=== PATIENT | male | born 1965 | race Caucasian/White ===

== ENCOUNTER 2017-11-26 06:08 | Inpatient (IN) | payer OTHER ==
[2017-11-26] MEDS: TRANEXAMIC ACID 1,000 MG in DEXTROSE 5% 100 ML IVPB (06:30)
[2017-11-26] MEDS: CEFAZOLIN 2 GM/50 ML (PMX) 50 ML IVPB (06:30)
[2017-11-26] MEDS ORDERED: BUPIVACAINE 0.5% (SDV) 30 ML, morphine SULFATE (PF) 8 MG, EPINEPHrine 0.3 MG, KETOROLAC... IRR (06:30)
[2017-11-26] MEDS ORDERED: THROMBIN 5000 UNIT VIAL (06:49)
[2017-11-26] MEDS ORDERED: TOBRAMYCIN 1.2 GM POWDER (06:49)
[2017-11-26] MEDS ORDERED: CA CHLORIDE 10% 10 ML SYRINGE (06:50)
[2017-11-26] MEDS: traMADol 50 MG TAB PO (06:55)
[2017-11-26] MEDS: DEXAMETHASONE 1 MG TAB PO (06:55)
[2017-11-26] MEDS: GABAPENTIN 300 MG CAP PO ×2 (06:55→20:03)
[2017-11-26] MEDS ORDERED: ROCURONIUM 50 MG INJ (07:00)
[2017-11-26] MEDS ORDERED: MIDAZOLAM 1 MG/ML 2 ML INJ (07:30)
[2017-11-26] MEDS ORDERED: ROPIVACAINE 0.5 % 30 ML VIAL (07:32)
[2017-11-26] MEDS: POLYMYXIN/BACITRACIN 1L IRRIG (09:02)
[2017-11-26] MEDS: BUPIVACAINE 0.5%/EPI (SDV) 30 ML INJ (09:02)
[2017-11-26] MEDS ORDERED: METOPROLOL 5 MG INJ (10:05)
[2017-11-26] MEDS ORDERED: LIDOCAINE 2% (SDV) 5 ML INJ (10:05)
[2017-11-26] MEDS ORDERED: PROPOFOL 20 ML (10:05)
[2017-11-26] MEDS ORDERED: CEFAZOLIN 1 GM INJ (10:05)
[2017-11-26] MEDS ORDERED: ONDANSETRON 4 MG INJ (10:06)
[2017-11-26] MEDS ORDERED: NALOXONE (0.4 MG/ML) INJ IV (11:00)
[2017-11-26] MEDS ORDERED: METOCLOPRAMIDE 10 MG INJ IV (11:00)
[2017-11-26] MEDS ORDERED: ONDANSETRON 4 MG INJ IV ×2 (11:00)
[2017-11-26] MEDS ORDERED: MAGNESIUM HYDROXIDE 30ML CUP PO (11:00)
[2017-11-26] MEDS ORDERED: morphine 2 MG INJ IV (11:00)
[2017-11-26] MEDS ORDERED: ZOLPIDEM 5 MG TAB PO (11:00)
[2017-11-26] MEDS ORDERED: ACETAMINOPHEN 500 MG TAB PO (11:00)
[2017-11-26] MEDS ORDERED: FENTAnyl 50 MCG/ML VIAL IV (11:00)
[2017-11-26] MEDS ORDERED: OXYCODONE/ACETAMINOPHEN (5/325) TAB PO (11:00)
[2017-11-26] MEDS ORDERED: HYDROmorphONE (0.2 MG/ML) 10ML SYG IV (11:00)
[2017-11-26] MEDS ORDERED: DIPHENHYDRAMINE 50 MG INJ IV ×2 (11:00)
[2017-11-26] MEDS ORDERED: MEPERIDINE 25 MG INJ IV (11:00)
[2017-11-26] MEDS: HYDROmorphONE (0.2 MG/ML) 10ML SYG IV (11:17)
[2017-11-26] MEDS: TRANEXAMIC ACID 1,000 MG in DEXTROSE 5% 100 ML IV (11:54)
[2017-11-26] MEDS: hydrALAzine 20 MG INJ IV (12:02)
[2017-11-26] MEDS: morphine 4 MG/ML VIAL IV (12:30)
[2017-11-26] MEDS: DEXAMETHASONE 2 MG TAB PO ×2 (13:23→17:46)
[2017-11-26] MEDS: CEFAZOLIN 1 GM/50 ML (PMX) 50 ML IVPB ×2 (13:30→20:03)
[2017-11-26] MEDS: OXYCODONE/ACETAMINOPHEN (5/325) TAB PO ×3 (13:46→21:41)
[2017-11-26] MEDS: SENNA/DOCUSATE NA (8.6MG/50MG) TAB PO (20:03)
[2017-11-27] MEDS: DEXAMETHASONE 2 MG TAB PO ×2 (00:20→05:38)
[2017-11-27] MEDS: OXYCODONE/ACETAMINOPHEN (5/325) TAB PO ×3 (01:42→09:29)
[2017-11-27] MEDS: CEFAZOLIN 1 GM/50 ML (PMX) 50 ML IVPB (03:04)
[2017-11-27] MEDS: SENNA/DOCUSATE NA (8.6MG/50MG) TAB PO (08:44)
[2017-11-27] MEDS: PANTOPRAZOLE (EC) 40 MG TAB PO (08:44)
[2017-11-27] MEDS: LISINOPRIL 10 MG TAB PO (08:45)
== END 2017-11-27 10:13 | disposition home or self-care (01) | DRG 483 ==
LOC: REC 06:08 → MS1 12:40
PROC: 0RRK00Z Replacement of Left Shoulder Joint with Reverse Ball and Socket Synthetic Substitute, Open Approach (ICD-10-PCS; principal; 2017-11-26 08:00)
PROC: 0LS40ZZ Reposition Left Upper Arm Tendon, Open Approach (ICD-10-PCS; 2017-11-26 08:00)
PROC: 0PBB0ZZ Excision of Left Clavicle, Open Approach (ICD-10-PCS; 2017-11-26 08:00)
DX: M19.212 Secondary osteoarthritis, left shoulder (principal); S46.212A Strain of muscle, fascia and tendon of other parts of biceps, left arm, initial encounter
CPT/HCPCS: 73030; 86999; 97110; 97165; 97535